=== PATIENT | female | born 1990 | race Caucasian/White ===

== ENCOUNTER 2019-01-23 12:30 | Emergency (ER) | payer MEDICAID ==
[2019-01-23 12:36] VITALS: RESP 20
[2019-01-23] MEDS ORDERED: Amoxicillin-Clav 875-125 mg Tab PO STA (12:47)
--- NOTE | 2019-01-23 12:55 | ED PDOC ---
HPI: Dental Pain/Injury Time Seen by Provider: 01/23/19 12:35 Chief Complaint (Nursing): Dental Pain History Per: Patient History/Exam Limitations: language barrier (telugu speaking, translation provided) Onset/Duration Of Symptoms: Days Additional Complaint(s): 28 yo F present for evaluation of left sided tooth pain radiating to her left ear starting last night. Pt reports for the last 3 days she has had discomfrot, but yesterday is when the pain got unbearable that she couldn't sleep. Pt has her wisdom teeth taken out 2 weeks ago and was doing fine until 3 days ago. She has an appointment with her dentist in 2 days for evaluation of getting other teeth pulled. AFter wisdom teeth were taken out she was supposed to take Amoxicillin, but did not start it until 3 days ago. She has been taking Ibuprofen 600mg, last dose 0300, without any relief. Pt denies fevers, chills, changes in hearing, difficulty chewing or swallowing. PMD: DR. tee LMP: 01/14 Past Medical History Reviewed: Historical Data, Nursing Documentation, Vital Signs Vital Signs: Last Vital Signs Temp 97.1 F L 01/23/19 12:33 Pulse 77 01/23/19 12:33 Resp 20 01/23/19 12:33 BP 119/82 01/23/19 12:33 Pulse Ox 98 01/23/19 12:33 Primary Care Provider: FAMILY PROVIDER,NO - Medical History PMH: No Chronic Diseases - Family History Family History: States: Unknown Family Hx - Immunization History Hx Tetanus Toxoid Vaccination: No Hx Influenza Vaccination: Yes Hx Pneumococcal Vaccination: No - Home Medications Home Medications: Ambulatory Orders Medication Instructions Recorded Cyclobenzaprine [Cyclobenzaprine 10 mg PO Q8 PRN #20 tab 04/24/17 HCl] Ibuprofen [Motrin] 600 mg PO Q6 PRN #20 tab 04/24/17 Amoxicillin/Clavulanate [Augmentin 1 tab PO BID 10 Days #20 tab 01/23/19 875 MG-125 MG] traMADol [Ultram] 50 mg PO TID PRN #9 tab 01/23/19 - Allergies Allergies/Adverse Reactions: Allergies Allergy/AdvReac Type Severity Reaction Status Date / Time No Known Allergies Allergy Verified 01/23/19 12:33 Review of Systems Constitutional: Negative for: Fever, Chills ENT: Positive for: Ear Pain, Mouth Pain. Negative for: Ear Discharge, Mouth Swelling, Throat Pain Physical Exam - Reviewed Nursing Documentation Reviewed: Yes Vital Signs Reviewed: Yes - Physical Exam Comments: GENERAL APPEARANCE: Patient is awake, alert, oriented x 3, in mild obvious discomfort SKIN: Warm, dry; (-) cyanosis. ENMT: Ears: external canal clears, TMs (-)bulging (-) erythema; (-) sinus swelling or tenderness. (+) tooth tenderness to percussion of left bottom 1st molar (+)cavity (-) fluctuance (-)masses, Pharynx: (-) tongue elevation, (-) exudate. (-)tonsil inflammation or erythema, Airway patent: (-) stridor. (-) Submandibular or submental neck swelling (-) pseudomembranes NECK: (-) tenderness, (-) crepitus. (+) left sided mildly tender lymphadenopathy - ECG O2 Sat by Pulse Oximetry: 98 Medical Decision Making Medical Decision Makin:35 initial eval - tooth infection -- Augmentin PO -- Tramadol PO (pt is not driving home) Discussed with pt she should not be taking antibiotics unless appropriately prescribed [place] [employer] Rx search results 01/04/2019 01/04/2019 ACETAMINOPHEN-COD #3 [id number] 3 NA HER [id number] [place] ([id number]) 0 30.0 MME Medicaid [place] 02/03/2018 02/03/2018 PHENTERMINE 15 [id number] [id number] [place] ([id number]) 0 Private Pay N 13;25 on re eval pt is feeling improvement. VSS, afebrile, tolerating PO, pt has f/u in 2 days Discussed diagnosis, treatment, return precautions and f/u with pt who is understanding, in agreement and stable for dc Disposition - Clinical Impression Clinical Impression: Tooth infection - Patient ED Disposition Is Patient to be Admitted: No Counseled Patient/Family Regarding: Studies Performed, Diagnosis, Need For Followup, Rx Given - Disposition Referrals: your, dentist [Other] (in 2days, as scheduled) Disposition: Routine/Home Disposition Time: 13:25 Condition: IMPROVED Additional Instructions: Thank you for letting us take care of you today. The emergency medical care you received today was directed at your acute symptoms. If you were prescribed any medication, please fill it and take as directed. Do not drive, operate heavy machinery or drink alcohol when taking tramadol. It may take several days for your symptoms to resolve. Return to the Emergency Department if your symptoms worsen, do not improve, or if you have any other problems. Please contact your doctor in 2 days for re-evaluation and follow up / or call one of the physicians/clinics you have been referred to that are listed on the Patient Visit Information form that is included in your discharge packet. Bring any paperwork you were given at discharge with you along with any medications you are taking to your follow up visit. Our treatment cannot replace ongoing medical care by a primary care provider (PCP) outside of the emergency department. Prescriptions: Amoxicillin/Clavulanate [Augmentin 875 MG-125 MG] 1 tab PO BID 10 Days #20 tab traMADol [Ultram] 50 mg PO TID PRN #9 tab PRN Reason: Pain, Severe (8-10) Instructions: Dental Pain (DC) Print Language: SWEDISH - POA Present On Arrival: None
[2019-01-23] MEDS ORDERED: Amoxicillin-Clav 875-125 mg Tab PO ONE (12:56)
[2019-01-23 13:46] VITALS: BP 116/70; PULSE 79; TEMP 97.4; O2SAT 99
== END 2019-01-23 13:35 | disposition home or self-care (01) ==
LOC: H.ER 12:30
DX: K04.7 Periapical abscess without sinus (principal)